=== PATIENT | female | born 1940 | race Caucasian/White ===

== ENCOUNTER 2017-08-17 04:43 | Inpatient (IN) | payer OTHER ==
[~2017-08-17] VITALS: Ht 165.1 cm; Wt 60.8 kg
[2017-08-17 05:09] LABS: HEMATOCRIT 41.5 % (36.0-46.0); HEMOGLOBIN 13.8 G/DL (11.9-15.5); MCH 28.8 PG (29.0-34.0); MCHC 33.3 G/DL (30.0-36.0); MCV 86.5 FL (83-99); PLATELET COUNT 218 K/uL (156-360); WHITE BLOOD COUNT 10.1 K/uL (4.1-10.2)
[2017-08-17 05:22] LABS: ALBUMIN 4.2 g/dL (3.2-4.8)
[2017-08-17 05:23] LABS: CHLORIDE 105 mEq/L (99-109); POTASSIUM 3.9 mEq/L (3.7-5.4); SODIUM 137 mEq/L (136-147)
[2017-08-17 05:25] LABS: GLUCOSE 131 mg/dL (70-99); TOTAL PROTEIN 6.5 g/dL (6.4-8.3)
[2017-08-17 05:27] LABS: TOTAL BILIRUBIN 0.5 mg/dL (0.0-1.0)
[2017-08-17 05:28] LABS: ALKALINE PHOSPHATASE 72 IU/L (3-129)
[2017-08-17 05:29] LABS: CREATININE 0.7 mg/dL (0.6-1.3)
[2017-08-17 05:30] LABS: AST (GOT) 21 IU/L (2-34); GFR ESTIMATE (CALCULATED) > 59 mL/min/; TROP-I INTERPRETATION NEGATIVE; TROPONIN-I < 0.01 ng/mL (0.0-0.30); UREA NITROGEN (BUN) 15 mg/dL (9-23)
[2017-08-17 05:31] LABS: ALT (GPT) 17 IU/L (3-49)
[2017-08-17 05:32] LABS: LIPASE 10 U/L (1.0-51.0)
[2017-08-17 11:38] LABS: TROP-I INTERPRETATION NEGATIVE; TROPONIN-I < 0.01 ng/mL (0.0-0.30)
[2017-08-17] MEDS ORDERED: VITAMIN B122500 MCG PO (13:16)
[2017-08-17] MEDS ORDERED: L-LYSINE500 M1 PO (13:16)
[2017-08-17] MEDS ORDERED: TYLENOL EXTRA500 MG PO (13:18)
[2017-08-17] MEDS ORDERED: AKWA TEARS15 ML BOTH EYES (13:20)
[2017-08-17] MEDS ORDERED: SYNTHROID50 MCG PO (13:26)
[2017-08-17] MEDS ORDERED: AZASITE2.5 ML BOTH EYES (13:31)
[2017-08-17 14:25] VITALS: BP 142/64
[2017-08-17 17:00] LABS: TROP-I INTERPRETATION NEGATIVE; TROPONIN-I < 0.01 ng/mL (0.0-0.30)
[2017-08-17 17:20] LABS: APPEARANCE SL.HAZY ((CLEAR)); BILIRUBIN NEGATIVE; BLOOD MODERATE; COLOR YELLOW ((YELLOW)); GLUCOSE (STRIP) NEGATIVE; KETONES NEGATIVE; LEUKOCYTES NEGATIVE; NITRITE NEGATIVE; PROTEIN (STRIP) NEGATIVE; UROBILINOGEN 0.2 MG/DL (0.2-1.0)
[2017-08-17 17:25] LABS: BACTERIA 3+ /HPF; EPITHELIAL CELLS RARE /HPF; MUCUS TRACE /LPF; UCUL ADDED? YES; WHITE BLOOD CELLS 0-5 /HPF (0-5)
[2017-08-17 19:58] VITALS: BP 130/60
[2017-08-17 23:49] VITALS: BP 96/58
[2017-08-18 04:22] VITALS: BP 96/52
[2017-08-18 07:48] LABS: HEMATOCRIT 41.4 % (36.0-46.0); HEMOGLOBIN 13.7 G/DL (11.9-15.5); MCH 28.4 PG (29.0-34.0); MCHC 33.1 G/DL (30.0-36.0); MCV 85.7 FL (83-99); PLATELET COUNT 234 K/uL (156-360); RBC DIS.WIDTH-CV 13.2 % (11.8-14.6); RBC DIS.WIDTH-SD 41.6 % (39-53); RED BLOOD COUNT 4.83 M/uL (3.80-5.20); WHITE BLOOD COUNT 17.7 K/uL (4.1-10.2)
[2017-08-18 08:02] LABS: CHLORIDE 103 MEQ/L (99-109); POTASSIUM 3.8 MEQ/L (3.7-5.4); SODIUM 137 MEQ/L (136-147)
[2017-08-18 08:07] LABS: CREATININE 0.8 MG/DL (0.6-1.3); GFR ESTIMATE (CALCULATED) > 59 mL/min/; GLUCOSE 104 mg/dL (70-99); UREA NITROGEN (BUN) 13 mg/dL (9-23)
[2017-08-18 08:43] VITALS: BP 120/58
[2017-08-18 12:17] VITALS: BP 98/57
[2017-08-18 19:56] VITALS: BP 124/61
[2017-08-18 23:41] VITALS: BP 104/59
[2017-08-19 03:51] VITALS: BP 122/60
[2017-08-19 06:04] LABS: HEMATOCRIT 37.4 % (36.0-46.0); HEMOGLOBIN 12.5 G/DL (11.9-15.5); MCH 29.3 PG (29.0-34.0); MCHC 33.4 G/DL (30.0-36.0); MCV 87.6 FL (83-99); PLATELET COUNT 190 K/uL (156-360); RBC DIS.WIDTH-CV 13.6 % (11.8-14.6); RBC DIS.WIDTH-SD 43.5 % (39-53); RED BLOOD COUNT 4.27 M/uL (3.80-5.20)
[2017-08-19 06:24] LABS: ALBUMIN 3.1 G/DL (3.2-4.8); ALKALINE PHOSPHATASE 62 IU/L (3-129); ALT (GPT) 108 IU/L (3-49); AST (GOT) 92 IU/L (2-34); CHLORIDE 109 MEQ/L (99-109); CREATININE 0.7 MG/DL (0.6-1.3); GFR ESTIMATE (CALCULATED) > 59 mL/min/; POTASSIUM 3.6 MEQ/L (3.7-5.4); SODIUM 143 MEQ/L (136-147); TOTAL BILIRUBIN 0.5 MG/DL (0.0-1.0); TOTAL PROTEIN 4.9 G/DL (6.4-8.3); UREA NITROGEN (BUN) 10 mg/dL (9-23)
[2017-08-19 06:25] LABS: GLUCOSE 170 mg/dL (70-99)
[2017-08-19 08:40] VITALS: BP 90/48
[2017-08-19 13:01] VITALS: BP 122/60
[2017-08-19 16:30] VITALS: BP 120/61
[2017-08-19 20:14] VITALS: BP 144/75
[2017-08-20] VITALS (7 sets, daily range): BP systolic 113–164; BP diastolic 59–81
[2017-08-20 05:58] LABS: BASOPHIL (%) 0.2 % (0-1); EOSINOPHIL (%) 0.1 % (0-5); HEMATOCRIT 33.4 % (36.0-46.0); HEMOGLOBIN 10.7 G/DL (11.9-15.5); IMMATURE GRANULOCYTE (%) 0.5 % (0.0-0.7); LYMPHOCYTE (%) 12.4 % (15-42); LYMPHOCYTE COUNT 1.2 K/uL (1.0-2.8); MCH 28.5 PG (29.0-34.0); MCV 88.8 FL (83-99); MONOCYTE (%) 6.9 % (3-12); MONOCYTE COUNT 0.7 K/uL (0-0.8); NEUTROPHIL (%) 79.9 % (45-76); NEUTROPHIL COUNT 7.9 K/uL (1.8-6.4); PLATELET COUNT 197 K/uL (156-360); RBC DIS.WIDTH-CV 13.8 % (11.8-14.6); RBC DIS.WIDTH-SD 45.3 % (39-53); RED BLOOD COUNT 3.76 M/uL (3.80-5.20); WHITE BLOOD COUNT 9.9 K/uL (4.1-10.2)
[2017-08-20 06:15] LABS: ALBUMIN 2.8 G/DL (3.2-4.8); ALKALINE PHOSPHATASE 59 IU/L (3-129); ALT (GPT) 61 IU/L (3-49); CHLORIDE 110 MEQ/L (99-109); CREATININE 0.6 MG/DL (0.6-1.3); DIRECT BILIRUBIN 0.1 mg/dL (0.0-0.3); GFR ESTIMATE (CALCULATED) > 59 mL/min/; POTASSIUM 3.6 MEQ/L (3.7-5.4); SODIUM 141 MEQ/L (136-147); TOTAL BILIRUBIN 0.4 MG/DL (0.0-1.0); TOTAL PROTEIN 4.7 G/DL (6.4-8.3); UREA NITROGEN (BUN) 8 mg/dL (9-23)
[2017-08-20 06:28] LABS: AST (GOT) 29 IU/L (2-34); GLUCOSE 113 mg/dL (70-99)
[2017-08-20] MEDS ORDERED: COLACE100 MG PO (14:28)
[2017-08-20] MEDS ORDERED: DILAUDID2 MG PO (14:28)
[2017-08-21 04:04] VITALS: BP 116/68
[2017-08-21 07:51] VITALS: BP 152/56
[2017-08-21 09:14] LABS: BASOPHIL (%) 0.4 % (0-1); EOSINOPHIL (%) 1.5 % (0-5); EOSINOPHIL COUNT 0.1 K/uL (0-0.3); HEMATOCRIT 38.1 % (36.0-46.0); HEMOGLOBIN 12.1 G/DL (11.9-15.5); IMMATURE GRANULOCYTE (%) 0.4 % (0.0-0.7); LYMPHOCYTE (%) 14.3 % (15-42); LYMPHOCYTE COUNT 1.1 K/uL (1.0-2.8); MCH 28.2 PG (29.0-34.0); MCHC 31.8 G/DL (30.0-36.0); MCV 88.8 FL (83-99); MONOCYTE (%) 8.6 % (3-12); MONOCYTE COUNT 0.7 K/uL (0-0.8); NEUTROPHIL (%) 74.8 % (45-76); NEUTROPHIL COUNT 5.9 K/uL (1.8-6.4); RBC DIS.WIDTH-CV 13.6 % (11.8-14.6); RBC DIS.WIDTH-SD 44.6 % (39-53); RED BLOOD COUNT 4.29 M/uL (3.80-5.20); WHITE BLOOD COUNT 7.8 K/uL (4.1-10.2)
[2017-08-21 09:15] LABS: PLATELET COUNT 260 K/uL (156-360)
[2017-08-21 09:36] LABS: CHLORIDE 108 MEQ/L (99-109); CREATININE 0.6 MG/DL (0.6-1.3); GFR ESTIMATE (CALCULATED) > 59 mL/min/; GLUCOSE 99 mg/dL (70-99); POTASSIUM 4.1 MEQ/L (3.7-5.4); SODIUM 142 MEQ/L (136-147); UREA NITROGEN (BUN) 9 mg/dL (9-23)
[2017-08-21] MEDS ORDERED: AUGMENTIN875 MG PO (10:16)
== END 2017-08-21 12:50 | disposition home health service (06) | DRG 418 ==
LOC: EME 04:43 → EDOF 06:07 → ENRESERV 06:08 → 4SOUTH 14:09
PROVIDERS: Emergency Medicine; Hospitalist; Internal Medicine; Nurse Practitioner Family; Surgery
PROC: 0FT44ZZ Resection of Gallbladder, Percutaneous Endoscopic Approach (ICD-10-PCS; principal; 2017-08-18)
DX: K80.00 Calculus of gallbladder with acute cholecystitis without obstruction (principal); N39.0 Urinary tract infection, site not specified; E03.9 Hypothyroidism, unspecified; E78.5 Hyperlipidemia, unspecified; J84.10 Pulmonary fibrosis, unspecified; Z88.2 Allergy status to sulfonamides; Z88.5 Allergy status to narcotic agent
CPT/HCPCS: 71046; 74176; 80048; 80053; 80076; 81003; 83690; 84484; 85025; 85027; 87077; 87086; 87186; 88304; 93005; 99281; 99284; G0378; J0131; J0690; J0696; J1100; J1650; J1885; J2405; J2710; J2765; J3010; J7030; S0028